=== PATIENT | female | born 1985 | race Caucasian/White ===

== ENCOUNTER 2016-08-31 13:27 | Emergency (ER) | payer OTHER ==
[2016-08-31 16:44] VITALS: BP 99/60
[2016-08-31] MEDS ORDERED: HYDROcodone/ACETAMIN 5-325 MG* 1 TAB PO ONE (16:49)
--- NOTE | 2016-08-31 17:26 | RAD ---
INDICATION: Previous injury. Back pain. COMPARISON: MRI lumbar spine May 20, 2009 TECHNIQUE: Noncontrast axial source images was performed from the thoracolumbar junction to the sacrum. Coronal and and sagittal reformatted images were generated. FINDINGS: Vertebrae: There is no fracture or acute focal bony lesion. Alignment: There is lumbar spine straightening. Central Canal: There are no significant CT abnormalities of the central canal or foramina. MR imaging is a more sensitive method to evaluate the canal and foramina. Intervertebral disc spaces: The disc spaces are maintained. Soft tissues: The paravertebral soft tissues are normal. Other: None IMPRESSION: LUMBAR SPINE STRAIGHTENING. NO ADDITIONAL SIGNIFICANT CT FINDINGS.
--- NOTE | 2016-08-31 18:15 | ED ---
Back Pain - HPI Summary HPI Summary: Patient with a history of low back pain arrives to ED with CC of low back pain after straining it trying to reach for something. She notes to immediate 10/10 pain which radiated down the right leg. Patient is unable to bear weight d/t pain. Patient has had previous herniated discs at L4-L5 and is seen at the pain clinic for pain control of this low back pain. She states she does not use the medication that much and only takes about 60 for the year only when she has flare ups. She has had a previous hydrodiscectomy. Today, she states the pain was instant and heard a "crack." Soon after she felt she could not bear weight or twist. She states it was similar to when she was diagnosed with herniated discs, but this pain was worse. Denies other injuries. Denies bladder or bowel dysfunction. Denies numbness. Endorses tingling in the right foot. - History of Current Complaint Chief Complaint: EDBackInjuryPain Stated Complaint: BACK PAIN Time Seen by Provider: 08/31/16 15:58 Hx Obtained From: Patient Onset/Duration: Sudden Onset Onset/Duration: Started Minutes Ago Timing: Constant Back Pain Location: Is Discrete @ - L4-L5 lower back Severity Initially: Severe Severity Currently: Severe Pain Intensity: 6 Pain Scale Used: 0-10 Numeric Character: Sharp, Throbbing Aggravating Symptom(s): Movement, Lifting, Bending, Walking Alleviating Symptom(s): Position Related History: Previous Back Injury - previous herniated discs - Risk Factors AAA Risk Factors: Negative TAD Risk Factors: Negative Cauda Equina Risk Factors: Negative Epidural Abscess Risk Factors: Lower Extemity Numbness - tingling in right leg, Lower Extremity Weakness - bilaterally - feels she is unable to stand - Allergies/Home Medications Allergies/Adverse Reactions: Allergies Allergy/AdvReac Type Severity Reaction Status Date / Time Codeine Allergy Vomiting Verified 12/03/14 14:05 Pregabalin [From Lyrica] AdvReac Dizziness Verified 12/03/14 14:05 PMH/Surg Hx/FS Hx/Imm Hx Previously Healthy: Yes Endocrine/Hematology History: Reports: Hx Diabetes - HYPOGLYCEMIA Denies: Hx Anticoagulant Therapy, Other Endocrine/Hematological Disorders Cardiovascular History: Denies: Other Cardiovascular Problems/Disorders Respiratory History: Reports: Hx Asthma - exercise related Denies: Other Respiratory Problems/Disorders GI History: Denies: Other GI Disorders History: Denies: Other Problems/Disorders Musculoskeletal History: Reports: Hx Arthritis, Hx Back Problems - Chronic back pain Denies: Other Musculoskeletal History - Left ankle fx Sensory History: Reports: Hx Contacts or Glasses Denies: Other Sensory Impairments Opthamlomology History: Reports: Hx Contacts or Glasses Denies: Other Sensory Impairments Neurological History: Denies: Other Neuro Impairments/Disorders Psychiatric History: Denies: Other Psychiatric Issues/Disorders - Surgical History Surgery Procedure, Year, and Place: October 2007 Hydrodiscetomy at [facility] Infectious Disease History: No Infectious Disease History: Denies: Traveled Outside the [place] in Last 30 Days - Social History Occupation: Employed Full-time Lives: With Family Alcohol Use: Daily Alcohol Amount: about 2 drinks 5 days per week Hx Substance Use: Yes Substance Use Type: Reports: Marijuana Substance Use Comment - Amount & Last Used: 1 year ago Hx Tobacco Use: Yes Smoking Status (MU): Heavy Every Day Tobacco Smoker Type: Cigarettes Amount Used/How Often: 8 cigarettes/day Have You Smoked in the Last Year: Yes Review of Systems Constitutional: Negative Cardiovascular: Negative Respiratory: Negative Gastrointestinal: Negative Positive: no symptoms reported, see HPI Positive: Arthralgia - lower back pain Skin: Negative Neurological: Negative Psychological: Normal All Other Systems Reviewed And Are Negative: Yes Physical Exam Triage Information Reviewed: Yes Vital Signs On Initial Exam: Initial Vitals Temp Pulse Resp BP Pulse Ox 98.6 F 81 16 111/60 99 08/31/16 13:37 08/31/16 13:37 08/31/16 13:37 08/31/16 13:37 08/31/16 13:37 Vital Signs Reviewed: Yes Appearance: Positive: Well-Appearing, Well-Nourished, Pain Distress Skin: Positive: Warm, Skin Color Reflects Adequate Perfusion, Dry Eyes: Positive: Normal, JOSE CARLOS, Conjunctiva Clear Neck: Positive: Supple, No Lymphadenopathy Respiratory/Lung Sounds: Positive: Clear to Auscultation, Breath Sounds Present Cardiovascular: Positive: Normal, RRR Abdomen Description: Positive: Nontender, No Organomegaly Musculoskeletal: Positive: Limited @ - Thorough physical exam was performed, focusing on thoracic and lumbar special tests and ROM. Due to patient pain around injury, physical exam was limited. Limited ROM. Flip Test positive. Straight leg raise positive. Negative Bab[place]i. Hip flexion and extension, knee extension, dorsiflexion, great toe extension and plantar flexion intact. Rotating at hips limited d/t pain. Nerve roots L4-S2 reflexes intact. L1-S2 nerve root sensory intact. No saddle anesthesia. Gait abnormal d/t pain., Pain @ - L4-L5 Neurological: Positive: Sensory/Motor Intact, Alert, Oriented to Person Place, Time, Speech Normal, Other - patient endorses tingling in right foot radiating from L4-L5 Psychiatric: Positive: Normal AVPU Assessment: Alert Diagnostics - Vital Signs Vital Signs Temp Pulse Resp BP Pulse Ox 08/31/16 17:00 73 99 08/31/16 16:30 72 99/60 98 08/31/16 16:00 80 107/55 98 08/31/16 15:51 76 99 08/31/16 15:49 96/78 08/31/16 15:21 98.2 F 91 18 100/57 100 08/31/16 13:37 98.6 F 81 16 111/60 99 - Laboratory Lab Statement: Any lab studies that have been ordered have been reviewed, and results considered in the medical decision making process. Back Pain Course/Dx - Course Course Of Treatment: D/t previous history with back injuries, and current physical exam limitations d/t pain and inability to bear weight, patient was sent for CT lumbar to r/o recurrence of injury. Negative for new fractures. CT shows lumbar straightening most likely d/t spasms or previous injury. No new pathologies. Patient given 1 hydrocodone in ED. Patient sees Dr Love at the pain clinic and is prescribed hydrocodone and a muscle relaxer. Patient encouraged to use those medications as directed for any pain and follow up with Dr. Love and PCP. Patient agrees. Provider gave note for work for 2 days. - Diagnoses Differential Diagnosis/HQI/PQRI: Positive: Compressive Cord Syndrome, Herniated Disc, Strain, Sprain Provider Diagnoses: Lumbar spine strain Discharge - Discharge Plan Condition: Stable Disposition: HOME Patient Education Materials: Low Back Strain (ED), Lumbar Radiculopathy (ED) Forms: *Work Release Referrals: She Parker MD [Primary Care Provider] - Loulou Love MD [Medical Doctor] - Additional Instructions: Ibuprofen 600mg three times daily with meals for discomfort. Continue with your prescribed muscle relaxer until symptoms improve. Return to ED if symptoms worsen or fail to improve, notice worsening swelling, warmth or redness around the joint, develop fever, or pain is uncontrolled with OTC medications. Moist heat to the area for comfort. Warm showers or baths may improve symptoms. It is important to remain mobile as tolerated to prevent stiffening of the joints and delay healing. Follow up with your PCP. If symptoms remain for > 6 weeks, please seek special medical attention from an orthopedic physician.
== END 2016-08-31 18:11 | disposition home or self-care (01) ==
LOC: ED 13:27
DX: S39.012A Strain of muscle, fascia and tendon of lower back, initial encounter (principal); M54.5 Low back pain; F17.210 Nicotine dependence, cigarettes, uncomplicated; X50.9XXA Other and unspecified overexertion or strenuous movements or postures, initial encounter; Y93.9 Activity, unspecified; Y92.9 Unspecified place or not applicable
CPT/HCPCS: 72131; 99282